=== PATIENT | female | born 1960 | race Caucasian/White ===

== ENCOUNTER 2018-03-02 11:00 | Observation (INO) | payer OTHER ==
[2018-04-07] MEDS ORDERED: LIDO/EPI 1% **for epidural** 30 ML SDV ONE (09:32)
[2018-04-07] MEDS ORDERED: BACITRACIN ZINC 14.2 GM OINTTUBE TP ONE (09:33)
[2018-04-07] MEDS ORDERED: LR 1,000 ML IV ONE (10:12)
[2018-04-07] MEDS ORDERED: CLINDAMYCIN 900 MG/DEXTROSE 50 ML IV ONE (10:42)
[2018-04-07] MEDS ORDERED: DEXAMETHASONE 10 MG/ML VIAL IVP ONE (10:42)
[2018-04-07] MEDS ORDERED: MIDAZOLAM 2 MG/2 ML VIAL IVP ONE (10:57)
[2018-04-07] MEDS ORDERED: MIDAZOLAM 2 MG/2 ML VIAL ONE (11:01)
--- NOTE | 2018-04-07 11:01 | PDANEPAE ---
ANE History of Present Illness L thyroid mass s/f L thyroid lobectomy ANE Past Medical History - Cardiovascular History Hx Hypertension: No Hx Arrhythmias: Yes Hx Chest Pain: No Hx Coronary Artery / Peripheral Vascular Disease: No Hx CHF / Valvular Disease: No Hx Palpitations: No Cardiovascular History Comment: mitral valve prolapse- pcp monitors diagnosed many years ago - Pulmonary History Hx COPD: No Hx Asthma/Reactive Airway Disease: No Hx Recent Upper Respiratory Infection: No Hx Oxygen in Use at Home: No Hx Sleep Apnea: No Sleep Apnea Screening Result - Last Documented: Negative - Neurologic History Hx Cerebrovascular Accident: No Hx Seizures: No Hx Dementia: No - Endocrine History Hx Diabetes: No Endocrine History Comment: benign tumor currently on thyroid on left side - Renal History Hx Renal Disorders: No - Liver History Hx Hepatic Disorders: No - Neurological & Psychiatric Hx Hx Neurological and Psychiatric Disorders: No - Cancer History Hx Cancer: Yes Cancer History Comment: squamous cell skin ca - Congenital Disorder History Hx Congenital Disorders: No - GI History Hx Gastrointestinal Disorders: Yes Gastrointestinal History Comment: constipation after surgeries. gi issues with wheat. hx of reflux went away eliminating wheat - Other Health History Other Health History: wears reading glasses - Chronic Pain History Chronic Pain: No - Surgical History Prior Surgeries: left shoulder surgery. breast implants. left knee surgery- scope. egd and colonoscopy x3. tonsils as child ANE Review of Systems Review of Systems: - Exercise capacity METS (RN): 5 METS ANE Patient History - Allergies Allergies/Adverse Reactions: Penicillins Allergy (Verified 02/22/18 15:28) Anaphylaxis wheat Allergy (Verified 02/22/18 15:29) strong intolerance to wheat products - Home Medications Home medications: home medication list seen and reviewed Home Medications: Estrogen Patch Q3days 02/22/18 [Last Taken 04/07/18] Herbals/Supplements -Info Only 02/22/18 [Last Taken 02/20/18] Progesterone Compound 250 Mg At Hs 02/22/18 [Last Taken 04/06/18] - NPO status NPO Status: no food or drink >8 hours NPO Since - Liquids (Date): 04/07/18 NPO Since - Liquids (Time): 03:30 NPO Since - Solids (Date): 04/06/18 NPO Since - Solids (Time): 20:30 - Anes Hx Anes Hx: no prior problems - Smoking Hx Smoking Status: Never smoked - Alcohol Use Alcohol Use: None - Family Anes Hx Family Anes Hx: none Family Hx Anesthesia Complications: none ANE Labs/Vital Signs - Vital Signs Blood Pressure: 113/76 Heart Rate: 58 Respiratory Rate: 14 O2 Sat (%): 98 Height: 185.42 cm Weight: 76.204 kg ANE Physical Exam - Airway Neck exam: FROM Mallampati Score: Class 1 Mouth exam: normal dental/mouth exam - Pulmonary Pulmonary: no respiratory distress - Cardiovascular Cardiovascular: regular rate and rhythym - ASA Status ASA Status: I ANE Anesthesia Plan Anesthesia Plan: general endotracheal anesthesia
--- NOTE | 2018-04-07 11:08 | PDGENHP ---
History & Physical Chief Complaint: Left thyroid mass History of Present Illness: Pt has enlarging left thyroid mass, with history of negative FNA. She presents for left lobectomy in hopes of resolving the pressure sensation. Pertinent Past, Social, Family History: Pt and lives in [facility]. Relevant Physical Exam: Left thyroid mass palp 4x3x3 cm. Lungs CTA. COR reg with no murmurs Cardiorespiratory Assessment: CTA. NO murmurs
[2018-04-07] MEDS ORDERED: DEXAMETHASONE 4 MG/ML VIAL ONE (11:22)
[2018-04-07] MEDS ORDERED: LIDOCAINE 2% 100 MG/5 ML SYR ONE (11:22)
[2018-04-07] MEDS ORDERED: PROPOFOL/EMULSION 500 MG/50 ML BOTTLE IV ONE (11:22)
[2018-04-07] MEDS ORDERED: fentaNYL 100 MCG/2 ML INJ ONE ×2 (11:22→13:49)
[2018-04-07] MEDS ORDERED: REMIFENTANIL HCL 1 MG VIAL ONE (11:22)
[2018-04-07] MEDS ORDERED: ONDANSETRON 4 MG/2 ML VIAL ONE (11:22)
[2018-04-07] MEDS ORDERED: LIDOCAINE HCL 160 MG/4 ML LTA KIT TP ONE (11:22)
[2018-04-07] MEDS ORDERED: NEOSTIGMINE METHYLSULFATE 5 MG/5 ML SYR ONE (11:36)
[2018-04-07] MEDS ORDERED: ePHEDrine SULFATE 25 MG/5 ML SYR ONE (11:42)
[2018-04-07] MEDS ORDERED: HYDROmorphONE/DILAUDID 1 MG/ML INJ IVP PRN (13:12)
[2018-04-07] MEDS ORDERED: METOCLOPRAMIDE 10 MG/2 ML VIAL IVP PRN (13:12)
[2018-04-07] MEDS ORDERED: PHENYLEPHRINE HCL 100 MCG/ML SYR IVP PRN (13:12)
[2018-04-07] MEDS ORDERED: LABETALOL HCL 5 MG/ML 20 ML MDV IVP PRN (13:12)
[2018-04-07] MEDS ORDERED: ALBUTEROL 3 ML DEYVIAL IH PRN (13:12)
[2018-04-07] MEDS ORDERED: ACETAMINOPHEN 500 MG TAB PO PRN (13:12)
[2018-04-07] MEDS ORDERED: LR 500 ML IV PRN (13:12)
[2018-04-07] MEDS ORDERED: NALOXONE HCL 0.4 MG/ML INJ IVP PRN (13:12)
[2018-04-07] MEDS ORDERED: MEPERIDINE 25 MG/0.5 ML AMP IVP PRN (13:12)
[2018-04-07] MEDS ORDERED: ONDANSETRON 4 MG/2 ML VIAL IVP PRN ×2 (13:12→13:25)
[2018-04-07] MEDS ORDERED: oxyCODONE IR 5 MG TAB PO PRN (13:12)
[2018-04-07] MEDS ORDERED: HYDROCODONE/APAP 5/325 TAB PO PRN (13:12)
[2018-04-07] MEDS ORDERED: PROMETHAZINE HCL 25 MG/ML INJ IVP PRN (13:12)
[2018-04-07] MEDS ORDERED: DEXAMETHASONE 4 MG/ML VIAL IVP PRN (13:12)
[2018-04-07] MEDS ORDERED: D5W 1/2 NS W/ 20 KCl/L 1,000 ML IV SCH (13:30)
--- NOTE | 2018-04-07 13:38 | POSTOPPROG ---
Post Op Note Date of Operation: 04/07/18 Surgeon: Wilton Green Delivery Room Clerk: Jan BONNER Anesthesiologist: Talon Mariee MD Anesthesia: GET(General Endotracheal) Pre-op Diagnosis: Left Thyroid Goiter Post-op Diagnosis: Same Indication: Left enlarging goiter Procedure: Left Thyroid Lobectomy Findings: RLN and both parathyroids preserved Inf/Abcess present in the surg proc area at time of surgery?: No Depth: Organ Space EBL: Minimal Complications: one Drains: Hemovac (10 FR)
--- NOTE | 2018-04-07 13:40 | GOP ---
DATE OF OPERATION: 04/07/2018 SURGEON: Wilton Green MD BUSINESS COMPUTERS TEACHER: 1. Kulwinder Benavidez MD. 2. Debra Garcia PA-C. ANESTHESIA: General endotracheal anesthesia. ANESTHESIOLOGIST: Talon Mariee MD PREOPERATIVE DIAGNOSIS: Left thyroid goiter. POSTOPERATIVE DIAGNOSIS: Left thyroid goiter. PROCEDURE PERFORMED: Left thyroid lobectomy. FINDINGS: An approximately 4 x 3 x 3 cm left thyroid lobe. The recurrent laryngeal nerve and both t he superior and inferior parathyroid glands were identified and preserved. SPECIMENS: Left thyroid lobe. ESTIMATED BLOOD LOSS: Less than 15 mL. INDICATIONS: The patient is a 58-year-old woman with an enlarging left thyroid mass. Needle biopsy was negative; however, given the enlarging mass and the onset of compressive symptoms, she presents f or a left thyroid lobectomy. DESCRIPTION OF PROCEDURE: The patient was taken to the OR and positively identified, placed on monit ors and general endotracheal anesthesia was induced. The patient was prepped and draped in the alyce l sterile fashion. Incision was marked and infiltrated with 4 cc of 1% lidocaine with 1:100,000 epin ephrine. The skin was then sharply incised. Dissection was then carried down through the platysma. Superior and inferior subplatysmal flaps were then raised and secured with stay sutures. The strap muscles were divided in the midline and lifted on the left side off the thyroid gland. The superior vascular pedicle was then dissected away from the surrounding soft tissues, clamped, cut, and ligated with a 2-0 silk stick tie. The dissection was then swept inferiorly along the gland, tying off and cauterizing vessels as needed. Rotating the gland medially, identifying both of the parathyroid glan ds, dissecting these off the thyroid capsule with their vascular supply, seeing the recurrent larynge al nerve and leaving it in place. The inferior vascular pedicle was then divided. The gland was rot ated medially more and then at this point, Aguiar's ligament was divided allowing me to dissect the lo be off the trachea and cross clamping at the isthmus and dividing it and sending the specimen for pat hologic evaluation. The isthmus was oversewn with a 3-0 Vicryl. The wound was irrigated with steril e saline. Hemostasis was assured. At this point, a 10-Guine[place] drain was placed through a separate st ab incision and secured with a drain stitch. The incision was then closed with interrupted Vicryl th rough the strap muscles, 4-0 Monocryl through the platysma and subcutaneous tissues followed by a fin al skin suture of Prolene. A sterile dressing was placed and the case was terminated. The patient pro cedure well. COMPLICATIONS: None. Copy requested to: [facility] Mally Reeder MD /[id number]/MODL
--- NOTE | 2018-04-07 13:45 | POSTANESTH ---
Post Anesthetic Evaluation Cardiovascular Status: Normal, Stable Respiratory Status: Normal, Stable, Tx Decrease in SpO2 (mild post op O2, will resolve shortly) Level of Consciousness/Mental Status: Can Participate in Eval Pain Control: Adequate, Prn Tx Ordered Nausea/Vomiting Control: Adequate, Prn Tx Ordered Complications Possibly Related to Anesthesia: None Noted
[2018-04-07] MEDS: fentaNYL 100 MCG/2 ML INJ IVP PRN ×2 (13:51→14:03)
[2018-04-07] MEDS: CLINDAMYCIN 600 MG/DEXTROSE 50 ML IV SCH ×2 (16:24→20:58)
--- NOTE | 2018-04-07 18:45 | SOAPPROG ---
SOAP Progress Note Assessment/Plan: Assessment:Pt is doing remarkably well. We discussed again the care of the wound ostop. Plan:Likely discharge tomorrow. 04/07/18 18:44 Subjective: Pt has lttle pain and feels her voice is normal Objective: Vital Signs Temp Pulse Resp BP Pulse Ox 37.6 C 73 16 102/74 94 04/07/18 17:30 04/07/18 17:30 04/07/18 17:30 04/07/18 17:30 04/07/18 17:30 04/06/18 04/07/18 04/08/18 05:59 05:59 05:59 Intake Total 1460 Output Total 15 Balance 1445 Neck flat and voice nromal ICD10 Worksheet Patient Problems: Problems Problem Status Onset Goiter Acute - ICD10 Problem Qualifiers (1) Goiter
[2018-04-07] MEDS: OXYCODONE/APAP 5/325 TAB PO PRN (20:58)
[2018-04-08] MEDS: OXYCODONE/APAP 5/325 TAB PO PRN (04:39)
[2018-04-08] MEDS: CLINDAMYCIN 600 MG/DEXTROSE 50 ML IV SCH (05:31)
[2018-04-08 07:50] VITALS: BP 95/62
--- NOTE | 2018-04-08 09:22 | PDDCSUM ---
Discharge Summary Discharge Summary: PT POD #1 s/p left thyroidectomy. She is doing well. Pain controlled. No hoarse voice. CLARISSE drain output minimal Incision c/d/i Drain removed, dressing replaced. okay for d/c Sutures out 5-6 days
--- NOTE | 2018-04-08 09:46 | ASDISCHSUM ---
Discharge Information Plan Status:Home with No Needs Medically Cleared to Leave: Discharge Date: CM D/C Disposition:Home, Routine, Self-Care ADT D/C Disposition:Home, Routine, Self-Care Projected Discharge Date: Transportation at D/C:Family Discharge Delay Reason: Follow-Up Date: Discharge Slot: Final Diagnosis: Placement Information Patient Contact Information Contact Name:MERCY Relationship: Address:[facility] [facility] City:[place] Phone: State/Zip Code:[place] [phone] Email: Financial Information Financial Class:HMO and PPO Plans Primary Plan Desc:[employer] Primary Plan Number:[id number] Secondary Plan Desc: Secondary Plan Number: Assessment Information LACE LACE Length of stay for Answers: 1 day current admission Acuity / Level of Answers: No Care: Did the patient have an inpatient admission? # of Emergency department Answers: 0 visits in the last 6 months Score: 1 Date Signed: 04/08/2018 09:44 AM Electronically Signed By:Amanda Zarate Intervention Information
== END 2018-04-08 12:33 | disposition home or self-care (01) ==
LOC: F3E 04-07 09:01
PROVIDERS: ADMIT Otolaryngology; ATTEND Otolaryngology
PROC: 0GBG0ZZ Excision of Left Thyroid Gland Lobe, Open Approach (ICD-10-PCS; principal; 2018-04-07 10:30)
DX: E04.9 Nontoxic goiter, unspecified (principal); I34.1 Nonrheumatic mitral (valve) prolapse; Z85.828 Personal history of other malignant neoplasm of skin
CPT/HCPCS: 60210; G0378; J1100; J2001; J2250; J2405; J2704; J2710; J3010